=== PATIENT | male | born 1995 | race Caucasian/White ===

== ENCOUNTER → 2017-06-13 | Outpatient (REF) | payer OTHER | LOC: M LAB REF 09:16 | DX: J02.9 Acute pharyngitis, unspecified (principal) ==

== ENCOUNTER → 2018-07-04 | Outpatient (REF) | payer OTHER | LOC: M LAB REF 15:01 | PROVIDERS: ATTEND Physician Assistant | DX: J04.2 Acute laryngotracheitis (principal) ==

== ENCOUNTER → 2022-01-20 | Outpatient (REF) | payer OTHER ==
[2022-01-20 13:34] LABS: ALBUMIN 4.6 G/DL (3.2-5.2); ALT/SGPT 38 U/L (7.0-40); BILIRUBIN,TOTAL 0.3 MG/DL (0.3-1.2); BLOOD UREA NITROGEN 11 MG/DL (9-23); CALCIUM LEVEL 9.1 MG/DL (8.5-10.1); CARBON DIOXIDE LEVEL 26 MMOL/L (20-31); CHLORIDE LEVEL 105 MMOL/L (98-107); CHOLESTEROL LEVEL 148 MG/DL (<200); CHOLESTEROL RISK RATIO 2.81 (<5); CREATININE FOR GFR 0.86 MG/DL (0.70-1.30); GLOMERULAR FILTRATION RATE > 60.0 (>60); GLUCOSE, FASTING 93 MG/DL (60-100); HDL CHOLESTEROL 52.6 MG/DL (>40); LDL CHOLESTEROL 79.4 MG/DL (<100); NON-HDL-C 95 MG/DL; POTASSIUM SERUM 4.1 MMOL/L (3.5-5.1); SODIUM LEVEL 141 MMOL/L (136-145); THYROID STIMULATING HORMONE 2.714 uIU/ML (0.55-4.78); TOTAL PROTEIN 6.8 G/DL (5.7-8.2); TRIGLYCERIDES LEVEL 80 MG/DL (<150)
== END ==
LOC: M LAB REF 12:28
PROVIDERS: ATTEND Family Medicine Addiction Medicine
DX: E03.9 Hypothyroidism, unspecified (principal)

== ENCOUNTER → 2022-08-08 | Outpatient (REF) | payer OTHER ==
[2022-08-08 16:12] LABS: CHOLESTEROL RISK RATIO 2.69 (<5); HDL CHOLESTEROL 57.5 MG/DL (>40); LDL CHOLESTEROL 76.7 MG/DL (<100); NON-HDL-C 97.5 MG/DL
[2022-08-08 16:14] LABS: THYROID STIMULATING HORMONE 3.016 uIU/ML (0.55-4.78)
== END ==
LOC: M LAB REF 12:30
PROVIDERS: ATTEND Family Medicine Addiction Medicine
DX: E03.9 Hypothyroidism, unspecified (principal)

== ENCOUNTER → 2022-10-30 | Outpatient (REF) | payer OTHER | LOC: M LAB REF 12:09 | PROVIDERS: ATTEND Family Medicine Addiction Medicine | DX: E03.9 Hypothyroidism, unspecified (principal) ==

== ENCOUNTER 2023-04-09 08:52 | Day surgery (SDC) | payer OTHER ==
[~2023-04-09] VITALS: Ht 177.8 cm; Wt 90.2 kg
[2023-04-09] MEDS: NS 1,000 ML IV ONE (06:00)
[~2023-04-09 08:52] MED LIST: CETI-24 PO; LEVO25TA5 PO; LORA-1041 PO
[2023-04-09 10:49] VITALS: TEMP 98.8
[2023-04-09] MEDS ORDERED: propofoL 200 MG/20 ML VIAL As Ordered ONE (11:04)
[2023-04-09 11:09] VITALS: BP 122/69; O2SAT 98
== END 2023-04-09 11:09 | disposition home or self-care (01) ==
LOC: M OPP 08:52
PROVIDERS: ATTEND Internal Medicine Gastroenterology
DX: K92.1 Melena (principal); D12.6 Benign neoplasm of colon, unspecified; K64.4 Residual hemorrhoidal skin tags; K64.8 Other hemorrhoids; F17.290 Nicotine dependence, other tobacco product, uncomplicated; Z79.52 Long term (current) use of systemic steroids; Z79.890 Hormone replacement therapy; Z79.899 Other long term (current) drug therapy

== ENCOUNTER → 2023-06-26 | Outpatient (REF) | payer OTHER ==
[2023-06-26 12:57] LABS: ALKALINE PHOSPHATASE 75 U/L (46-116); ALT/SGPT 51 U/L (7.0-40); AST/SGOT 19 U/L (<34); BILIRUBIN,TOTAL 0.3 MG/DL (0.3-1.2); BLOOD UREA NITROGEN 14 MG/DL (9-23); CALCIUM LEVEL 9.6 MG/DL (8.5-10.1); CARBON DIOXIDE LEVEL 24 MMOL/L (20-31); CHLORIDE LEVEL 106 MMOL/L (98-107); CHOLESTEROL LEVEL 176 MG/DL (<200); CHOLESTEROL RISK RATIO 3.72 (<5); CREATININE FOR GFR 0.87 MG/DL (0.70-1.30); GLOMERULAR FILTRATION RATE > 60.0 (>60); GLUCOSE, FASTING 93 MG/DL (60-100); HDL CHOLESTEROL 47.3 MG/DL (>40); LDL CHOLESTEROL 91.1 MG/DL (<100); NON-HDL-C 128.7 MG/DL; POTASSIUM SERUM 4.3 MMOL/L (3.5-5.1); SODIUM LEVEL 140 MMOL/L (136-145); THYROID STIMULATING HORMONE 4.176 uIU/ML (0.55-4.78); TRIGLYCERIDES LEVEL 188 MG/DL (<150)
== END ==
LOC: M LAB REF 11:48
PROVIDERS: ATTEND Family Medicine Addiction Medicine
DX: E03.9 Hypothyroidism, unspecified (principal)

== ENCOUNTER → 2024-04-11 | Outpatient (REF) | payer OTHER ==
[2024-04-11 13:10] LABS: THYROID STIMULATING HORMONE 6.622 uIU/ML (0.55-4.78)
[2024-04-11 13:15] LABS: ALBUMIN 4.2 G/DL (3.2-5.2); ALKALINE PHOSPHATASE 74 U/L (40-129); ALT/SGPT 53 U/L (7.0-40); AST/SGOT 24 U/L (<34); BILIRUBIN,TOTAL 0.3 MG/DL (0.3-1.2); BLOOD UREA NITROGEN 11 MG/DL (9-23); CALCIUM LEVEL 9.6 MG/DL (8.5-10.1); CARBON DIOXIDE LEVEL 24 MMOL/L (20-31); CHLORIDE LEVEL 107 MMOL/L (98-107); CHOLESTEROL LEVEL 168 MG/DL (<200); CHOLESTEROL RISK RATIO 3.54 (<5); CREATININE FOR GFR 0.98 MG/DL (0.70-1.30); GLOMERULAR FILTRATION RATE > 60.0 (>60); GLUCOSE, FASTING 81 MG/DL (60-100); HDL CHOLESTEROL 47.4 MG/DL (>40); LDL CHOLESTEROL 91.8 MG/DL (<100); NON-HDL-C 120.6 MG/DL; POTASSIUM SERUM 4.4 MMOL/L (3.5-5.1); SODIUM LEVEL 143 MMOL/L (136-145); TOTAL PROTEIN 7.4 G/DL (5.7-8.2); TRIGLYCERIDES LEVEL 144 MG/DL (<150)
== END ==
LOC: M LAB REF 11:44
PROVIDERS: ATTEND Family Medicine Addiction Medicine
DX: I10 Essential (primary) hypertension (principal)

== ENCOUNTER → 2024-07-05 | Outpatient (REF) | payer OTHER ==
[2024-07-05 14:22] LABS: ALBUMIN 4.4 G/DL (3.2-5.2); BILIRUBIN,DIRECT 0.1 MG/DL (<0.4); BILIRUBIN,TOTAL 0.4 MG/DL (0.3-1.2); TOTAL PROTEIN 7.8 G/DL (5.7-8.2)
[2024-07-05 14:23] LABS: THYROID STIMULATING HORMONE 2.38 uIU/ML (0.55-4.78)
== END ==
LOC: M LAB REF 13:30
PROVIDERS: ATTEND Family Medicine Addiction Medicine
DX: R74.01 Elevation of levels of liver transaminase levels (principal); E03.9 Hypothyroidism, unspecified

== ENCOUNTER → 2024-09-28 | Outpatient (REF) | payer OTHER | LOC: M LAB REF 12:20 | PROVIDERS: ATTEND Family Medicine Addiction Medicine | DX: E03.9 Hypothyroidism, unspecified (principal) ==